=== PATIENT | male | born 1955 | race Caucasian/White ===

== ENCOUNTER 2020-05-09 20:21 | Inpatient (IN) | payer MEDICARE ==
[~2020-05-09] VITALS: Ht 182.9 cm; Wt 109.3 kg
--- NOTE | 2020-05-09 20:45 | NUR ---
ED Nurse Note: Recieved pt from home, here with c/o "my heart is beating really fast", pt is awake, alert and oriented x 4, states has been feeling palpitations since yesterday after diving, denies any chest pain, no sob or labored breathing, pt is slightly anxious due to unknown but denies any other s/s, pt immediately placed on cardiac mionitoring and noted in SVT at rate of 170's, MD immediately at bedside and attempted valsalvar maneuvers which were unsuccessful, IV line placed and labs drawn, will administer meds and continue to closely montior. pt other v/s wnl and stable.
[2020-05-09 21:00] VITALS: BP 117/74
[2020-05-09] MEDS ORDERED: Adenosine 6mg/2ml Inj IVP ONE (21:00)
[2020-05-09 21:01] LABS: BASOPHILS % (AUTO) 0.9 % (0.0-2.0); EOSINOPHILS % (AUTO) 0.9 % (0.0-3.0); HEMATOCRIT 45.9 % (42.0-52.0); HEMOGLOBIN 15.3 G/DL (14.2-18.0); LYMPHOCYTES % (AUTO) 35.1 % (20.0-45.0); MEAN CORPUSCULAR VOLUME 85 FL (80-99); MONOCYTES % (AUTO) 6.4 % (1.0-10.0); NEUTROPHILS % (AUTO) 56.8 % (45.0-75.0); PLATELET COUNT 255 K/UL (150-450); RED BLOOD COUNT 5.39 M/UL (4.70-6.10); WHITE BLOOD COUNT 12.1 K/UL (4.8-10.8)
[2020-05-09 21:10] VITALS: BP 109/75
[2020-05-09 21:21] LABS: ANION GAP 11 mmol/L (5-15); BLOOD UREA NITROGEN 23 mg/dL (7-18); CALCIUM 9.3 MG/DL (8.5-10.1); CARBON DIOXIDE 24 MMOL/L (21-32); CHLORIDE 106 MMOL/L (98-107); CREATININE 1.5 MG/DL (0.55-1.30); POTASSIUM 3.9 MMOL/L (3.5-5.1); SODIUM 141 MMOL/L (136-145)
--- NOTE | 2020-05-09 21:23 | Diagnostic Imaging Report ---
EXAM: XR Chest, 1 View CLINICAL HISTORY: SOB TECHNIQUE: Frontal views of the chest. COMPARISON: None available. FINDINGS: Lungs: Unremarkable. No consolidation. Pleural space: Unremarkable. No pneumothorax. Heart: Unremarkable. No cardiomegaly. Mediastinum: Unremarkable. Bones/joints: Unremarkable. Vasculature: Mildly tortuous aorta. IMPRESSION: No acute findings in the chest.
--- NOTE | 2020-05-09 21:30 | NUR ---
ED Nurse Note: Pt administered adenosine, med effective, heart rate decreased to 103, repeat ekg also NSR, pt continuues to deny chest pain, sob, or any other discomforts, will continue to closely monitor cardiac status on monitoring.
[2020-05-09 21:35] VITALS: BP 127/85
[2020-05-09 21:35] LABS: ALANINE AMINOTRANSFERASE 43 U/L (12-78); ALBUMIN/GLOBULIN RATIO 1.1 (1.0-2.7); ALKALINE PHOSPHATASE 158 U/L (46-116); ASPARTATE AMINO TRANSFERASE 28 U/L (15-37); BILIRUBIN,TOTAL 0.3 MG/DL (0.2-1.0)
--- NOTE | 2020-05-09 22:28 | Emergency Room Report ---
History of Present Illness General Chief Complaint: Palpitations Source: Patient Present Illness HPI 64-year-old male no reported past medical history presents for palpitations. He states he has had palpitations for the last 24 hours or so. He did eat a marijuana brownie last night. Today's had some chest tightness with generalized weakness and palpitations. No history of similar episodes in the past. Patient denies any medical history at this time. 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 Patient History Reviewed Nursing Documentation: PMH: Agreed; PSxH: Agreed Nursing Documentation-PMH Past Medical History: No Stated History Review of Systems All Other Systems: negative except mentioned in HPI Physical Exam Vital Signs Date Time Temp Pulse Resp B/P (MAP) Pulse Ox O2 Delivery O2 Flow Rate FiO2 05/09/20 20:25 98.4 161 18 109/75 (86) 97 Room Air Sp02 EP Interpretation: reviewed, normal General Appearance: no apparent distress, other - Patient mildly diaphoretic Head: normocephalic, atraumatic Eyes: bilateral eye PERRL, bilateral eye EOMI ENT: hearing grossly normal, moist mucus membranes Neck: full range of motion, supple Respiratory: lungs clear, normal breath sounds, no rhonchi, no respiratory distress, no retraction, no wheezing Cardiovascular #1: normal peripheral pulses, regular rate, rhythm, no murmur, tachycardia Gastrointestinal: non tender, soft, non-distended, no guarding Neurologic: alert, oriented x3, no focal defects Skin: normal color, warm/dry Medical Decision Making Diagnostic Impression: Primary Impression: SVT (supraventricular tachycardia) Additional Impression: Troponin level elevated ER Course MDM: Differential included but not limited to SVT, atrial fibrillation, ACS, adverse reaction to cannabis Clinical course-IV inserted patient placed on cardiac monitoring pulse oximetry. EKG demonstrated evidence of SVT. Laboratory studies were sent showed mild elevation in the troponin. Patient had mild chest tightness while having SVT. First I attempted vagal maneuvers which were unsuccessful. Patient then given 6 mg of adenosine IV with conversion to sinus rhythm. Repeat EKG demonstrated sinus rhythm with a rate of 99 at 2110. First-degree AV block noted. Secondary to patient's chest tightness mild elevation troponin was given aspirin was placed on telemetry for observation. Labs - Laboratory Tests Test 05/09/20 20:49 05/09/20 21:00 White Blood Count 12.1 K/UL (4.8-10.8) H Red Blood Count 5.39 M/UL (4.70-6.10) Hemoglobin 15.3 G/DL (14.2-18.0) Hematocrit 45.9 % (42.0-52.0) Mean Corpuscular Volume 85 FL (80-99) Mean Corpuscular Hemoglobin 28.3 PG (27.0-31.0) Mean Corpuscular Hemoglobin Concent 33.3 G/DL (32.0-36.0) Red Cell Distribution Width 13.0 % (11.6-14.8) Platelet Count 255 K/UL (150-450) Mean Platelet Volume 7.5 FL (6.5-10.1) Neutrophils (%) (Auto) 56.8 % (45.0-75.0) Lymphocytes (%) (Auto) 35.1 % (20.0-45.0) Monocytes (%) (Auto) 6.4 % (1.0-10.0) Eosinophils (%) (Auto) 0.9 % (0.0-3.0) Basophils (%) (Auto) 0.9 % (0.0-2.0) Prothrombin Time 10.7 SEC (9.30-11.50) Prothrombin Time INR 1.0 (0.9-1.1) Activated Partial Thromboplast Time 29 SEC (23-33) Sodium Level 141 MMOL/L (136-145) Potassium Level 3.9 MMOL/L (3.5-5.1) Chloride Level 106 MMOL/L (98-107) Carbon Dioxide Level 24 MMOL/L (21-32) Anion Gap 11 mmol/L (5-15) Blood Urea Nitrogen 23 mg/dL (7-18) H Creatinine 1.5 MG/DL (0.55-1.30) H Estimated Glomerular Filtration Rate 46.8 mL/min (>60) Glucose Level 115 MG/DL (74-106) H Calcium Level 9.3 MG/DL (8.5-10.1) Magnesium Level 2.3 MG/DL (1.8-2.4) Total Bilirubin 0.3 MG/DL (0.2-1.0) Aspartate Amino Transferase (AST) 28 U/L (15-37) Alanine Aminotransferase (ALT) 43 U/L (12-78) Alkaline Phosphatase 158 U/L (46-116) H Troponin I 0.085 ng/mL (0.000-0.056) Pro-B-Type Natriuretic Peptide 626 pg/mL (0-125) H Total Protein 7.7 G/DL (6.4-8.2) Albumin 4.0 G/DL (3.4-5.0) Globulin 3.7 g/dL Albumin/Globulin Ratio 1.1 (1.0-2.7) Urine Opiates Screen Negative (NEGATIVE) Urine Barbiturates Screen Negative (NEGATIVE) Phencyclidine (PCP) Screen Negative (NEGATIVE) Urine Amphetamines Screen Negative (NEGATIVE) Urine Benzodiazepines Screen Negative (NEGATIVE) Urine Cocaine Screen Negative (NEGATIVE) Urine Marijuana (THC) Screen Positive (NEGATIVE) H Plan- observation to telemetry floor EKG Diagnostic Results EKG Time: 20:43 EP Interpretation: Yes Rate: tachycardiac Rhythm: other - SVT Other Impression Rate 161 SVT Last Vital Signs Date Time Temp Pulse Resp B/P (MAP) Pulse Ox O2 Delivery O2 Flow Rate FiO2 05/09/20 21:35 98.4 96 15 127/85 100 Room Air Status: improved Disposition: ADMITTED INPATIENT Condition: Serious Referrals: NON PHYSICIAN (PCP) Ishmael Bustos M.D. May 09, 2020 22:28
[2020-05-09] MEDS ORDERED: Aspirin Baby 81mg ORAL ONE (22:45)
[2020-05-09 23:00] VITALS: BP 117/78
--- NOTE | 2020-05-09 23:00 | NUR ---
ED Nurse Note: Pt continues to rest in bed quietly and awake, remains on cardiac monitoring in NSR with rate of about 85, continues to deny chest pain, ASA given as ordered for elevated trop level, saline lock intact and patent, belongings list completed for pt admission, no sob or labored breathing noted, nad noted, will continue to closely monitor while waiting for pt room for hospital admission.
--- NOTE | 2020-05-09 23:45 | NUR ---
ED Nurse Note: Pt has room for admission, report called to floor nurse, pt belongings list completed and kept with him, pt remains awake and alert, saline lock intact and patent, denies cp or any pain, no sob or lbored breathing and heart rate wnl, pt taken to unit via gurney with acls protocols and monitoring, nad noted during pt transport to floor bed.
--- NOTE | 2020-05-09 23:50 | NUR ---
NURSE NOTES: Received report from FRIEDA Garcia RN. Pt admitted to Tele/OBS. Pt in stable condition, denies pain, A+Ox4, skin is intact. laboratory monitor placed. Pt given call light and instructed to call if assistance is needed, verbalized understanding. Bed in lowest position, side rails up x2. Pt has bathroom privileges. Will start plan of care and close monitoring.
--- NOTE | 2020-05-10 04:30 | NUR ---
NURSE NOTES: Pt had sudden onset of SVT with bpm reaching 170. 12-Lead EKG done and shows SVT. Pt states that he feel palpitations, making him anxious. Pt is currently in ST at 140 bpm. Ladonna notified of change in condition, awaiting new orders.
[2020-05-10 08:00] VITALS: BP 103/78
--- NOTE | 2020-05-10 08:06 | NUR ---
HAND-OFF: Report given to Tasneem Mendoza RN. Pt in stable condition, plan of care endorsed.
--- NOTE | 2020-05-10 08:09 | NUR ---
NURSES NOTES: Received report from YENI Reyes. Pt is A/O x4 and sitting in bed with no pain noted. analytical tech in place and showing ST. Pt is on NC running 2L. Pt has a LAC 20 gauge with saline lock. Bed in lowest position and locked and call light placed within reach.
--- NOTE | 2020-05-10 08:37 | NUR ---
NURSE NOTES: Made Dr Dougherty aware of the pt's HR, sustaining to 150s. made aware of troponin level (yesterday was 0.085 and 0.254 today). Awaiting for new orders. Addendum: 05/10/20 at 0852 by Tasneem Garland RN made aware that HR is on 160s now.
[2020-05-10] MEDS: Aspirin Baby 81mg ORAL SCH (09:01)
[2020-05-10] MEDS: Metoprolol Tartrate 12.5mg TAB ORAL SCH ×2 (09:01→20:27)
[2020-05-10] MEDS: Heparin 5000 units/ml inj SUBQ SCH ×2 (09:02→20:32)
--- NOTE | 2020-05-10 09:29 | History & Physical ---
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 He did eat a marijuana brownie previous evening. Had some chest tightness with generalized weakness and palpitations. No history of similar episodes in the past. Patient denies any medical history at this time. SVT resolved with Adenosine Allergies: No Known Allergies Past Medical History: Cataract Surgery, on HIV prophyllaxis Social History: Marijuana use FH: NC All Other Systems: negative except mentioned in HPI Physical Exam Vital Signs Noted Date Time Temp Pulse Resp B/P (MAP) Pulse Ox O2 Delivery O2 Flow Rate FiO2 05/09/20 20:25 98.4 161 18 109/75 (86) 97 Room Air General Appearance: no apparent distress Head: normocephalic, atraumatic Eyes: bilateral eye PERRL, bilateral eye EOMI ENT: hearing grossly normal, moist mucus membranes Neck: full range of motion, supple Respiratory: lungs clear, normal breath sounds, no rhonchi, no respiratory distress, no retraction, no wheezing Cardiovascular: HS1, HS2 normal, normal peripheral pulses, regular rate, rhythm , no murmur, tachycardia Gastrointestinal: non tender, soft, non-distended, no guarding Neurologic: alert, oriented x3, no focal defects Skin: normal color, warm/dry, no edema Impression: Supraventricular tachycardia Troponin level elevated, possible NSTEMI HIV prophyllaxis on Truvada Previous cataract surgery Plan ASA Metoprolol Echocardiogram Cardiology Consultation SQ Heparin Monitor labs TSH Laboratory Tests noted Test 05/09/20 20:49 05/09/20 21:00 White Blood Count 12.1 K/UL (4.8-10.8) H Red Blood Count 5.39 M/UL (4.70-6.10) Hemoglobin 15.3 G/DL (14.2-18.0) Hematocrit 45.9 % (42.0-52.0) Mean Corpuscular Volume 85 FL (80-99) Mean Corpuscular Hemoglobin 28.3 PG (27.0-31.0) Mean Corpuscular Hemoglobin Concent 33.3 G/DL (32.0-36.0) Red Cell Distribution Width 13.0 % (11.6-14.8) Platelet Count 255 K/UL (150-450) Mean Platelet Volume 7.5 FL (6.5-10.1) Neutrophils (%) (Auto) 56.8 % (45.0-75.0) Lymphocytes (%) (Auto) 35.1 % (20.0-45.0) Monocytes (%) (Auto) 6.4 % (1.0-10.0) Eosinophils (%) (Auto) 0.9 % (0.0-3.0) Basophils (%) (Auto) 0.9 % (0.0-2.0) Prothrombin Time 10.7 SEC (9.30-11.50) Prothrombin Time INR 1.0 (0.9-1.1) Activated Partial Thromboplast Time 29 SEC (23-33) Sodium Level 141 MMOL/L (136-145) Potassium Level 3.9 MMOL/L (3.5-5.1) Chloride Level 106 MMOL/L (98-107) Carbon Dioxide Level 24 MMOL/L (21-32) Anion Gap 11 mmol/L (5-15) Blood Urea Nitrogen 23 mg/dL (7-18) H Creatinine 1.5 MG/DL (0.55-1.30) H Estimated Glomerular Filtration Rate 46.8 mL/min (>60) Glucose Level 115 MG/DL (74-106) H Calcium Level 9.3 MG/DL (8.5-10.1) Magnesium Level 2.3 MG/DL (1.8-2.4) Total Bilirubin 0.3 MG/DL (0.2-1.0) Aspartate Amino Transferase (AST) 28 U/L (15-37) Alanine Aminotransferase (ALT) 43 U/L (12-78) Alkaline Phosphatase 158 U/L (46-116) H Troponin I 0.085 ng/mL (0.000-0.056) Pro-B-Type Natriuretic Peptide 626 pg/mL (0-125) H Total Protein 7.7 G/DL (6.4-8.2) Albumin 4.0 G/DL (3.4-5.0) Globulin 3.7 g/dL Albumin/Globulin Ratio 1.1 (1.0-2.7) Urine Opiates Screen Negative (NEGATIVE) Urine Barbiturates Screen Negative (NEGATIVE) Phencyclidine (PCP) Screen Negative (NEGATIVE) Urine Amphetamines Screen Negative (NEGATIVE) Urine Benzodiazepines Screen Negative (NEGATIVE) Urine Cocaine Screen Negative (NEGATIVE) Urine Marijuana (THC) Screen Positive (NEGATIVE) H EKG: Rate: tachycardiac Rhythm: other - SVT Other Impression Rate 161 SVT CXR: No acute abnormality Gabriel Del Valle MD May 10, 2020 09:29
[2020-05-10] MEDS ORDERED: LOTEMAX SM5 GM OP (10:15)
[2020-05-10] MEDS ORDERED: REFRESH OPTIVE15 ML OP (10:15)
[2020-05-10] MEDS ORDERED: ATORVASTATIN CA10 MG ORAL (10:15)
[2020-05-10] MEDS ORDERED: PROLENSA1.6 ML OP (10:15)
[2020-05-10] MEDS ORDERED: dilTIAZem HCl 25mg/5ml Inj IVP SCH (10:15)
[2020-05-10 12:00] VITALS: BP 106/75
[2020-05-10] MEDS: dilTIAZem HCl 60mg tab ORAL SCH ×3 (12:00→23:40)
[2020-05-10] MEDS: NS w/KCl 20mEq 1000ml 1,000 ML IV SCH ×2 (12:59→18:00)
--- NOTE | 2020-05-10 13:09 | NUR ---
NURSE NOTES: Held cardizem that is scheduled at 1200. One time dose was just given at 1021.
[2020-05-10 14:05] LABS: APPEARANCE,URINE CLEAR; BILIRUBIN, URINE NEGATIVE (NEGATIVE); COLOR,URINE PALE YELLOW; GLUCOSE, URINE (UA) NEGATIVE (NEGATIVE); KETONES,URINE NEGATIVE (NEGATIVE); LEUKOCYTE ESTERASE ,URINE NEGATIVE (NEGATIVE); NITRITE,URINE NEGATIVE (NEGATIVE); PH,URINE 5 (4.5-8.0); PROTEIN,URINE NEGATIVE (NEGATIVE); UROBILINOGEN,URINE NORMAL MG/DL (0.0-1.0)
[2020-05-10] MEDS: [UNRECOGNIZED DRUG - OTHER] BOTH EYES PRN ×2 (15:09→20:27)
[2020-05-10 16:00] VITALS: BP 110/74
[2020-05-10] MEDS: LOTEMAX SM 0.38% BOTH EYES SCH (17:59)
--- NOTE | 2020-05-10 18:00 | NUR ---
NURSES NOTES: Cardizem held at 1800. BP and Pulse within normal range.
--- NOTE | 2020-05-10 19:14 | Consultation ---
DATE OF CONSULTATION: 05/10/2020 CARDIOLOGY CONSULTATION CONSULTING PHYSICIAN: Gabriel Dougherty MD. REFERRING PHYSICIAN: Tim Foley MD. REASON FOR CONSULTATION: Supraventricular tachycardia. HISTORY OF PRESENT ILLNESS: This 64-year-old white gentleman with no prior history of cardiovascular disease other than hypertension, developed palpitations and some shortness of breath last night. He is an avid swimmer and resuming swimming this weekend had a few short spurts of tachycardia noted, but not of significance. He did not have any other changes in his condition other than eating a marijuana brownie the night before of admission. He came to the emergency room with some shortness of breath, palpitations, chest tightness and weakness, and was noted to have supraventricular tachycardia which was terminated with adenosine. Upon admission to the hospital a recurring episode was noted and Cardizem was given with resolution as well. The patient also had an elevated troponin level prompting this consultation. PAST MEDICAL HISTORY: Notable for hypertension and hyperlipidemia. MEDICATIONS: Include atorvastatin. ALLERGIES: None. SOCIAL HISTORY: Occasional marijuana. No smoking, alcohol, or other substance abuse. FAMILY HISTORY: Both parents had coronary artery disease. REVIEW OF SYSTEMS: No fevers or chills. No cough or sputum production. No history of COVID-19 exposure. No seizure or stroke. No known thyroid disorder or diabetes. He is on anti-lipid therapy. No change in bowel habits. No history of prostate cancer or difficulty voiding. He had a stress test several years ago that was negative. PHYSICAL EXAMINATION: VITAL SIGNS: Blood pressure 109/75, pulse 160, respirations 18, afebrile. Presently 105/65, pulse 78, respirations 18. HEENT: Conjunctivae are pink. Oropharynx is clear. NECK: Supple. LUNGS: Clear. CARDIAC: Regular. Normal S1, S2 with no murmur. ABDOMEN: Soft, nontender. EXTREMITIES: Good pulses. No edema. NEUROLOGIC: Nonfocal. LABORATORY AND DIAGNOSTIC DATA: EKG - sinus rhythm, nonspecific ST change. Repeat EKG with SVT noted, possibly AV jackelyn reentry. Troponin up to 0.243. IMPRESSION: 1. Paroxysmal supraventricular tachycardia. 2. History of hyperlipidemia. 3. Elevated troponin level, likely precipitated by rapid heart rate and decreased oxygen carrying capacity. PLAN: 1. Anti-platelet therapy, low-dose beta-keya, add Cardizem. 2. Review echocardiogram. 3. Consider myocardial perfusion scan. 4. DVT prophylaxis, no plan for full anticoagulation at this time. Gabriel Dougherty M.D. DR: DAYNE JOB#: [id number] CC:
--- NOTE | 2020-05-10 19:33 | NUR ---
NURSE HAND-OFF REPORT: Important Events on Shift: Was SVT and converted to SR with Cardizem IVP. Urine Sample pending and receiving 1/2 NS with 20 meq @ 150cc/hr x 2L. Patient Status: Good Diet: Cardiac Pending Orders: None Pending Results/Labs: Urine Pending notification: None Latest Vital Signs: Temperature 98.8 , Pulse 63 , B/P 106 /75 , Respiratory Rate 18 , O2 SAT 97 , Nasal Cannula, O2 Flow Rate 3.0 . Vital Sign Comment: EKG Rhythm: SR w/ 1st deg HB Rhythm change?: N Notified?: Flor Gregory MD Response: Message left await call Latest Olson Fall Score: 20 Fall Risk: Low Risk Safety Measures: Call light Within Reach, Bed Alarm , Side Rails Side Rails x2, Bed position Low and Locked. Fall Precautions: Yellow Socks Yellow Gown Door Sign Patient Fall Education Report given to Rosalva.
--- NOTE | 2020-05-10 19:53 | NUR ---
NURSE NOTES: Report received from YENI Muñoz. Patient is in bed awake alert and oriented x4. No SOB or distress. athletic monitor is intact, Sinus rhythm with 68 heart rate. Call light and bedside table within reach. Denies pain at this time. Bed at lowest position locked with siderails up for support. Will continue with plan of care.
[2020-05-10 20:00] VITALS: BP 111/68
[2020-05-10] MEDS: TRUVADA ORAL SCH (20:28)
--- NOTE | 2020-05-10 23:24 | NUR ---
NURSE NOTES: Spoke with Dr. Del Valle regarding patient stating that he can not sleep and he feels restless. Orders noted and carried out to start Ambien 5 mg one tablet orally QHS PRN for inability to sleep.
[2020-05-11] VITALS: BP 109/70
[2020-05-11] MEDS: Zolpidem 5mg tab ORAL PRN ×2 (00:52→23:31)
[2020-05-11 04:00] VITALS: BP 108/71
[2020-05-11] MEDS: dilTIAZem HCl 60mg tab ORAL SCH ×3 (06:00→21:43)
--- NOTE | 2020-05-11 06:37 | NUR ---
NURSE NOTES: Called and left message with Dr. Dougherty. Made him aware that patient has heart rate of 51, BP 108/71, EKG tracing shows Sinus Julian with 1st degree AV block. Asked him if Diltiazem 60mg should be administered or held due to vital signs. Awaiting call back.
--- NOTE | 2020-05-11 07:19 | NUR ---
HAND-OFF: Report given to YENI Galindo. Patient is stable at this time. Made him aware of call made to Dr. Morley.
--- NOTE | 2020-05-11 07:20 | NUR ---
NURSE NOTES: Received patient awake, ambulating in room. On room air, respirations unlabored. Denies pain at this time. IV in the Left AC, site intact. Side rails up x2, bed low and locked.
[2020-05-11 07:38] LABS: ALANINE AMINOTRANSFERASE 46 U/L (12-78); ALBUMIN/GLOBULIN RATIO 1.1 (1.0-2.7); ALKALINE PHOSPHATASE 130 U/L (46-116); ANION GAP 5 mmol/L (5-15); ASPARTATE AMINO TRANSFERASE 27 U/L (15-37); BILIRUBIN,TOTAL 0.8 MG/DL (0.2-1.0); BLOOD UREA NITROGEN 15 mg/dL (7-18); CALCIUM 8.9 MG/DL (8.5-10.1); CARBON DIOXIDE 29 MMOL/L (21-32); CHLORIDE 108 MMOL/L (98-107); CHOLESTEROL 125 MG/DL (< 200); CREATININE 1.2 MG/DL (0.55-1.30); HDL CHOLESTEROL 30 MG/DL (40-60); POTASSIUM 3.8 MMOL/L (3.5-5.1); SODIUM 142 MMOL/L (136-145); TRIGLYCERIDES 80 MG/DL (30-150)
[2020-05-11 08:00] VITALS: BP 133/64
[2020-05-11] MEDS: LOTEMAX SM 0.38% BOTH EYES SCH ×3 (08:44→17:45)
[2020-05-11] MEDS: PROLENSA 0.07% BOTH EYES SCH (08:44)
[2020-05-11] MEDS: Aspirin Baby 81mg ORAL SCH (08:45)
--- NOTE | 2020-05-11 08:46 | General Progress Note ---
Assessment/Plan Assessment/Plan: Impression: Supraventricular tachycardia Troponin level elevated, possible NSTEMI HIV prophyllaxis on Truvada Previous cataract surgery Plan ASA Metoprolol Echocardiogram Cardiology follow up SQ Heparin Monitor labs TSH minimally elevated check t3 and t4 impression, plan, and exam edited and reviewed in detail care discussed with RN Subjective Allergies: Coded Allergies: No Known Allergies (Unverified , 05/09/20) Subjective comfortable NAD Objective Last 24 Hour Vital Signs Date Time Temp Pulse Resp B/P (MAP) Pulse Ox O2 Delivery O2 Flow Rate FiO2 05/11/20 08:11 Nasal Cannula 2.0 05/11/20 06:00 51 108/55 05/11/20 04:00 98.4 66 18 108/71 (83) 94 05/11/20 04:00 56 05/11/20 00:00 98.5 63 18 109/70 (83) 98 05/11/20 00:00 55 05/10/20 23:40 60 111/68 05/10/20 21:00 Nasal Cannula 3.0 05/10/20 20:27 63 148/73 05/10/20 20:00 68 05/10/20 20:00 98.1 60 18 111/68 (82) 98 05/10/20 17:21 63 106/75 05/10/20 16:00 98.8 64 18 110/74 (86) 97 05/10/20 15:26 63 05/10/20 12:00 99.0 65 20 106/75 (85) 97 05/10/20 11:54 64 05/10/20 10:21 142 103/78 05/10/20 09:01 142 103/78 05/10/20 09:00 Nasal Cannula 3.0 Intake and Output 05/10/20 05/11/20 18:59 06:59 Intake Total 360 ml Output Total 700 ml 300 ml Balance -340 ml -300 ml Intake Oral 360 ml Output Urine Total 700 ml 300 ml # Voids 1 Laboratory Tests 05/10/20 11:02: Urine Color Pale yellow, Urine Appearance Clear, Urine pH 5, Urine Specific [place] 1.015, Urine Protein Negative, Urine Glucose (UA) Negative, Urine Ketones Negative, Urine Blood Negative, Urine Nitrite Negative, Urine Bilirubin Negative, Urine Urobilinogen Normal, Urine Leukocyte Esterase Negative 05/10/20 17:20: Troponin I 0.209H 05/11/20 06:01: Sodium Level 142, Potassium Level 3.8, Chloride Level 108H, Carbon Dioxide Level 29, Anion Gap 5, Blood Urea Nitrogen 15, Creatinine 1.2, Estimat Glomerular Filtration Rate > 60, Glucose Level 91, Calcium Level 8.9, Magnesium Level 2.1, Total Bilirubin 0.8, Aspartate Amino Transf (AST/SGOT) 27, Alanine Aminotransferase (ALT/SGPT) 46, Alkaline Phosphatase 130H, Total Protein 7.7, Albumin 4.0, Globulin 3.7, Albumin/Globulin Ratio 1.1, Triglycerides Level 80, Cholesterol Level 125, LDL Cholesterol 84, HDL Cholesterol 30L, Cholesterol/HDL Ratio 4.2 Height (Feet): 6 Height (Inches): 10.00 Weight (Pounds): 240 Objective WDWN NAD clear breath sounds bilaterally without rhonchi or wheeze [id number] without MRG NABS nontender no HSM no CCE nonfocal Tim Foley MD May 11, 2020 08:46
[2020-05-11] MEDS: Heparin 5000 units/ml inj SUBQ SCH ×2 (08:56→21:42)
[2020-05-11] MEDS: Metoprolol Tartrate 12.5mg TAB ORAL SCH ×2 (08:57→21:00)
[2020-05-11] MEDS: [UNRECOGNIZED DRUG - OTHER] BOTH EYES PRN ×2 (09:30→17:43)
[2020-05-11 11:59] VITALS: BP 117/77
--- NOTE | 2020-05-11 15:13 | NUR ---
CASE MANAGEMENT: REVIEW 64 YEAR OLD MALE PRESENTED TO ED FROM HOME CC: CHEST PAIN . PALPITATIONS SI: SUPRAVENTRICULAR TACHYCARDIA T 98.4 HR 167 RR 18 BP 109/75 SAT 97% ROOM AIR WBC 12.1 BUN 23 CR 1.5 TROP I 0.254 EKG -- SINUS RHYTHM, NONSPECIFIC ST CHANGE, DEMONSTRATED EVIDENCE OF SVT STRESS TEST PENDING DOWNTREND OF TROPONIN I IS: NS IVF BOLUS X1 ADENOSINE IV X1 CARDIZEM IV X1 ASA 162MG PO X1 K-DUR 20MEQ PO X1 PATIENT ADMITTED TO TELEMETRY UNIT 05/09/2020 DCP: PATIENT IS FROM HOME
[2020-05-11 16:00] VITALS: BP 120/73
--- NOTE | 2020-05-11 19:15 | NUR ---
NURSE HAND-OFF REPORT: Important Events on Shift:[troponin blood draw] Patient Status: [] Diet: [cardiac] Pending Orders: [] Pending Results/Labs:[] Pending MD notification:[] Latest Vital Signs: Temperature 97.9 , Pulse 85 , B/P 120 /73 , Respiratory Rate 20 , O2 SAT 98 , Nasal Cannula, O2 Flow Rate 2.0 . Vital Sign Comment: [] EKG Rhythm: SR w/ 1st degree AVB Rhythm change?: N MD Notified?: MD Response: Latest Olson Fall Score: 20 Fall Risk: Low Risk Safety Measures: Call light Within Reach, Bed Alarm , Side Rails Side Rails x2, Bed position Low and Locked. Fall Precautions: Patient Fall Education Report given to [Shelli JAIME].
--- NOTE | 2020-05-11 19:50 | NUR ---
NURSE NOTES: Received pt from YENI Galindo. Pt awake, alert, and talkative. Bed in lowest position. Call light within reach. Will continue to monitor.
[2020-05-11 20:00] VITALS: BP 130/80
[2020-05-11] MEDS: TRUVADA ORAL SCH (21:35)
[2020-05-12] VITALS: BP 128/74
--- NOTE | 2020-05-12 00:33 | Cardiology Progress Note ---
Subjective DATE OF SERVICE: May 11, 2020 No recurring SVT on diltiazem No CP or SOB. Troponin trending down Objective Last 24 Hour Vital Signs Date Time Temp Pulse Resp B/P (MAP) Pulse Ox O2 Delivery O2 Flow Rate FiO2 05/11/20 20:00 97.9 60 20 130/80 (97) 98 05/11/20 16:00 85 05/11/20 16:00 97.9 61 20 120/73 (89) 98 05/11/20 14:07 66 112/76 05/11/20 12:00 64 05/11/20 11:59 98.1 58 20 117/77 (90) 95 05/11/20 08:57 59 133/64 05/11/20 08:11 Nasal Cannula 2.0 05/11/20 08:00 58 05/11/20 08:00 97.5 59 20 133/64 (87) 93 05/11/20 06:00 51 108/55 05/11/20 04:00 98.4 66 18 108/71 (83) 94 05/11/20 04:00 56 HEENT: normal ENT inspection RHYTHM: NSR LUNGS: lungs clear bilaterally CARDIAC: normal rate, regular rhythm, normal S1 and S2 ABDOMEN: normal bowel sounds, non tender, soft, no organomegaly EXTREMITIES: no calf tenderness, No edema Laboratory Tests Test 05/11/20 06:01 Sodium Level 142 MMOL/L (136-145) Potassium Level 3.8 MMOL/L (3.5-5.1) Chloride Level 108 MMOL/L (98-107) H Carbon Dioxide Level 29 MMOL/L (21-32) Anion Gap 5 mmol/L (5-15) Blood Urea Nitrogen 15 mg/dL (7-18) Creatinine 1.2 MG/DL (0.55-1.30) Estimat Glomerular Filtration Rate > 60 mL/min (>60) Glucose Level 91 MG/DL (74-106) Calcium Level 8.9 MG/DL (8.5-10.1) Magnesium Level 2.1 MG/DL (1.8-2.4) Total Bilirubin 0.8 MG/DL (0.2-1.0) Aspartate Amino Transf (AST/SGOT) 27 U/L (15-37) Alanine Aminotransferase (ALT/SGPT) 46 U/L (12-78) Alkaline Phosphatase 130 U/L (46-116) H Troponin I 0.120 ng/mL (0.000-0.056) Total Protein 7.7 G/DL (6.4-8.2) Albumin 4.0 G/DL (3.4-5.0) Globulin 3.7 g/dL Albumin/Globulin Ratio 1.1 (1.0-2.7) Triglycerides Level 80 MG/DL (30-150) Cholesterol Level 125 MG/DL (< 200) LDL Cholesterol 84 mg/dL (<100) HDL Cholesterol 30 MG/DL (40-60) L Cholesterol/HDL Ratio 4.2 (3.3-4.4) Free Thyroxine 1.02 NG/DL (0.76-1.46) Free Triiodothyronine 2.4 pg/mL (2.3-4.2) EKG INTERPRETATION: 2D Echo - normal LVEF and valves Assessment/Plan Assessment/Plan Paroxysmal SVT Acute myocardial ischemia and possible NSTEMI Hyperlipidemia Serial troponin titrate anti-arrhythmics No anti-coagulation presently indicated Outpatient ischemia work-up Possible DC next 24hrs if cont'd stable cardiac rhythm. Gabriel Dougherty MD May 12, 2020 00:33
[2020-05-12 04:00] VITALS: BP 127/78
[2020-05-12] MEDS: dilTIAZem HCl 60mg tab ORAL SCH (05:43)
[2020-05-12 06:28] LABS: BASOPHILS % (AUTO) 0.9 % (0.0-2.0); EOSINOPHILS % (AUTO) 1.9 % (0.0-3.0); HEMATOCRIT 44.8 % (42.0-52.0); HEMOGLOBIN 14.7 G/DL (14.2-18.0); LYMPHOCYTES % (AUTO) 40.7 % (20.0-45.0); MEAN CORPUSCULAR VOLUME 85 FL (80-99); NEUTROPHILS % (AUTO) 49.4 % (45.0-75.0); PLATELET COUNT 204 K/UL (150-450); RED BLOOD COUNT 5.26 M/UL (4.70-6.10); WHITE BLOOD COUNT 6.9 K/UL (4.8-10.8)
[2020-05-12 06:53] LABS: ANION GAP 8 mmol/L (5-15); BLOOD UREA NITROGEN 16 mg/dL (7-18); CALCIUM 8.8 MG/DL (8.5-10.1); CARBON DIOXIDE 28 MMOL/L (21-32); CHLORIDE 104 MMOL/L (98-107); CREATININE 1.3 MG/DL (0.55-1.30); POTASSIUM 3.8 MMOL/L (3.5-5.1); SODIUM 140 MMOL/L (136-145)
--- NOTE | 2020-05-12 07:04 | NUR ---
NURSE HAND-OFF REPORT: Important Events on Shift: Ladonna spoke with pt and stated that he will be D/Cd if rhythm remains the same. Patient Status: stable Diet: cardiac Pending Orders: flonase added to med list Pending Results/Labs: cbc/bmp Pending notification: n/a Latest Vital Signs: Temperature 97.6 , Pulse 57 , B/P 127 /78 , Respiratory Rate 20 , O2 SAT 100 , Nasal Cannula, O2 Flow Rate 2.0 . Vital Sign Comment: stable EKG Rhythm: SB w/ 1st degree AVB Rhythm change?: N Notified?: Flor Gregory MD Response: Latest Olson Fall Score: 20 Fall Risk: Low Risk Safety Measures: Call light Within Reach, Bed Alarm , Side Rails Side Rails x2, Bed position Low and Locked. Fall Precautions: Education only. Pt stable on feet Patient Fall Education: Y Report given to YENI Galindo.
--- NOTE | 2020-05-12 07:10 | NUR ---
NURSE NOTES: Received patient in bed. Awake, A/O x4. On 2 L via NC. Patient denies pain. IV in the Left AC, site intact. Heart monitor on. Bed low and locked, side rails up x2.
--- NOTE | 2020-05-12 07:26 | General Progress Note ---
Assessment/Plan Assessment/Plan: Impression: Supraventricular tachycardia Troponin level elevated, possible NSTEMI HIV prophyllaxis on Truvada Previous cataract surgery Plan ASA Metoprolol Cardiology follow up SQ Heparin Monitor labs TSH minimally elevated normal t3 and t4 dc planning impression, plan, and exam edited and reviewed in detail care discussed with RN Subjective Allergies: Coded Allergies: No Known Allergies (Unverified , 05/09/20) Subjective comfortable NAD cardiology noted Objective Last 24 Hour Vital Signs Date Time Temp Pulse Resp B/P (MAP) Pulse Ox O2 Delivery O2 Flow Rate FiO2 05/12/20 04:00 57 05/12/20 04:00 97.6 60 20 127/78 (94) 100 05/12/20 00:00 97.7 74 20 128/74 (92) 98 05/12/20 00:00 69 05/11/20 21:00 Nasal Cannula 2.0 05/11/20 20:00 97.9 60 20 130/80 (97) 98 05/11/20 20:00 67 05/11/20 16:00 85 05/11/20 16:00 97.9 61 20 120/73 (89) 98 05/11/20 14:07 66 112/76 05/11/20 12:00 64 05/11/20 11:59 98.1 58 20 117/77 (90) 95 05/11/20 08:57 59 133/64 05/11/20 08:11 Nasal Cannula 2.0 05/11/20 08:00 58 05/11/20 08:00 97.5 59 20 133/64 (87) 93 Intake and Output 05/11/20 05/12/20 19:00 07:00 Intake Total 600 ml Balance 600 ml Intake Oral 600 ml # Voids 4 2 Laboratory Tests 05/12/20 05:42: White Blood Count 6.9, Red Blood Count 5.26, Hemoglobin 14.7, Hematocrit 44.8, Mean Corpuscular Volume 85, Mean Corpuscular Hemoglobin 27.9, Mean Corpuscular Hemoglobin Concent 32.8, Red Cell Distribution Width 12.0, Platelet Count 204, Mean Platelet Volume 6.6, Neutrophils (%) (Auto) 49.4, Lymphocytes (%) (Auto) 40.7, Monocytes (%) (Auto) 7.0, Eosinophils (%) (Auto) 1.9, Basophils (%) (Auto ) 0.9, Sodium Level 140, Potassium Level 3.8, Chloride Level 104, Carbon Dioxide Level 28, Anion Gap 8, Blood Urea Nitrogen 16, Creatinine 1.3, Estimat Glomerular Filtration Rate 55.2, Glucose Level 97, Calcium Level 8.8, Magnesium Level 2.0, Troponin I [Pending] Height (Feet): 6 Height (Inches): 10.00 Weight (Pounds): 241 Objective WDWN NAD clear breath sounds bilaterally without rhonchi or wheeze [id number] without MRG NABS nontender no HSM no CCE nonfocal Tim Foley MD May 12, 2020 07:26
[2020-05-12 08:00] VITALS: BP 120/73
[2020-05-12] MEDS: LOTEMAX SM 0.38% BOTH EYES SCH ×2 (08:53→13:07)
[2020-05-12] MEDS: [UNRECOGNIZED DRUG - OTHER] BOTH EYES PRN (08:53)
[2020-05-12] MEDS: Aspirin Baby 81mg ORAL SCH (08:53)
[2020-05-12] MEDS: PROLENSA 0.07% BOTH EYES SCH (08:53)
[2020-05-12] MEDS: Metoprolol Tartrate 12.5mg TAB ORAL SCH (08:53)
[2020-05-12] MEDS: Heparin 5000 units/ml inj SUBQ SCH (08:58)
[2020-05-12] MEDS ORDERED: Flonase Nasal Inhaler 16gm NASAL SCH (09:00)
[2020-05-12 12:00] VITALS: BP 118/79
[2020-05-12] MEDS ORDERED: ASPIRIN81 MG ORAL (12:55)
[2020-05-12] MEDS ORDERED: CARDIZEM CD180 MG ORAL (12:55)
[2020-05-12] MEDS ORDERED: dilTIAZem HCl CD 180mg cap ORAL SCH (13:00)
[2020-05-12 13:07] VITALS: BP 118/79
--- NOTE | 2020-05-12 14:15 | NUR ---
NURSE NOTES: Patient dc to home with (Farzad). IV site removed, ID band removed, Heart monitor removed. Belongings list verified.
[2020-05-12] MEDS ORDERED: TRUVADA ORAL SCH (21:00)
--- NOTE | 2020-05-12 23:07 | Cardiology Progress Note ---
Subjective DATE OF SERVICE: May 12, 2020 No recurring SVT on diltiazem No CP or SOB. Troponin trending to normal Objective Last 24 Hour Vital Signs Date Time Temp Pulse Resp B/P (MAP) Pulse Ox O2 Delivery O2 Flow Rate FiO2 05/12/20 13:07 60 118/79 05/12/20 12:00 71 05/12/20 12:00 97.5 60 17 118/79 (92) 99 05/12/20 08:53 104 120/73 05/12/20 08:07 Nasal Cannula 2.0 05/12/20 08:00 104 05/12/20 08:00 97.9 60 18 120/73 (89) 98 05/12/20 04:00 57 05/12/20 04:00 97.6 60 20 127/78 (94) 100 05/12/20 00:00 97.7 74 20 128/74 (92) 98 05/12/20 00:00 69 HEENT: normal ENT inspection RHYTHM: NSR LUNGS: lungs clear bilaterally CARDIAC: normal rate, regular rhythm, normal S1 and S2 ABDOMEN: normal bowel sounds, non tender, soft, no organomegaly EXTREMITIES: no calf tenderness, No edema Laboratory Tests Test 05/12/20 05:42 White Blood Count 6.9 K/UL (4.8-10.8) Red Blood Count 5.26 M/UL (4.70-6.10) Hemoglobin 14.7 G/DL (14.2-18.0) Hematocrit 44.8 % (42.0-52.0) Mean Corpuscular Volume 85 FL (80-99) Mean Corpuscular Hemoglobin 27.9 PG (27.0-31.0) Mean Corpuscular Hemoglobin Concent 32.8 G/DL (32.0-36.0) Red Cell Distribution Width 12.0 % (11.6-14.8) Platelet Count 204 K/UL (150-450) Mean Platelet Volume 6.6 FL (6.5-10.1) Neutrophils (%) (Auto) 49.4 % (45.0-75.0) Lymphocytes (%) (Auto) 40.7 % (20.0-45.0) Monocytes (%) (Auto) 7.0 % (1.0-10.0) Eosinophils (%) (Auto) 1.9 % (0.0-3.0) Basophils (%) (Auto) 0.9 % (0.0-2.0) Sodium Level 140 MMOL/L (136-145) Potassium Level 3.8 MMOL/L (3.5-5.1) Chloride Level 104 MMOL/L (98-107) Carbon Dioxide Level 28 MMOL/L (21-32) Anion Gap 8 mmol/L (5-15) Blood Urea Nitrogen 16 mg/dL (7-18) Creatinine 1.3 MG/DL (0.55-1.30) Estimat Glomerular Filtration Rate 55.2 mL/min (>60) Glucose Level 97 MG/DL (74-106) Calcium Level 8.8 MG/DL (8.5-10.1) Magnesium Level 2.0 MG/DL (1.8-2.4) Troponin I 0.033 ng/mL (0.000-0.056) Assessment/Plan Assessment/Plan Paroxysmal SVT Acute myocardial ischemia and possible NSTEMI Hyperlipidemia Outpatient stress test No anti-coagulation presently indicated; continue aspirin. Continue diltiazem Gabriel Dougherty MD May 12, 2020 23:07
--- NOTE | 2020-05-14 18:19 | Discharge Summary ---
Discharge Summary Discharge Summary _ DATE OF ADMISSION: 05/09/2020 DATE OF DISCHARGE: 05/12/2020 DISCHARGED BY: Dr. Foley REASON FOR ADMISSION: 64 years old male with no reported past medical history, presented to emergency department for palpitations for the last 24 hours. Patient apparently consumed a marijuana brownie the night prior to presentation to ED. The next day he had chest tightness with generalized weakness and palpitations. No history of similar episodes in the past. Upon evaluation patient was tachycardic with heart rate 161. Blood pressure was stable. Pulse oximetry was stable on room air. Laboratory work-up revealed mild leukocytosis WBC 12.1, hemoglobin 15.3, hematocrit 45.9, platelet count 255. Stable electrolytes. BUN 23, creatinine 1.5. Glucose 115. Magnesium 2.3. Troponin 0.085 , pro BNP 626 . EKG revealed supraventricular tachycardia AST 28,ALT 43, alkaline phosphatase 158 Urine toxicology screen was positive for marijuana. Chest x-ray demonstrated no acute cardiopulmonary pathology. In emergency department patient was placed on monitoring coordinator . Initially attempted vagal maneuver, which were unsuccessful. Patient subsequently received 6 mg of IV adenosine with conversion to sinus rhythm. Repeated EKG demonstrated sinus rhythm with rate of 99 and first-degree AV block. Patient received aspirin and admitted to telemetry floor for further management. CONSULTANTS: research agricultural engineer Dr. Dougherty [facility] COURSE: Patient admitted to telemetry floor. Patient started on aspirin and beta-blockade. Chief Scientist consulted. Patient also started on Cardizem. Heart rate was controlled with Cardizem and beta-keya. No further evidence of SVT. DVT prophylaxis provided. TSH slightly elevated 4.453 with stable free T4 and T3. Serial troponin revealed minimal elevation with peak of 0.254, then started to trend down; last troponin negative. Echocardiogram demonstrated preserved ejection fraction of 65% with borderline left ventricular hypertrophy. No evidence of pericardial effusion. No evidence of wall motion abnormality. Right ventricular systolic pressure of 23. According to research agricultural engineer patient had acute myocardial ischemia and possibly NSTEMI. He did not recommended any anticoagulation at this time, but continue with aspirin, beta-keya and diltiazem. Lipid panel remains stable stable. Statin continued. Patient was recommended outpatient stress test . Patient clinically stabilized and was ready for discharge home. FINAL DIAGNOSES: Paroxysmal supraventricular tachycardia Elevated troponin Acute myocardial ischemia Possible NSTEMI Hyperlipidemia HIV prophylaxis, on Truvada History of cataract surgery DISCHARGE MEDICATIONS: See Medication Reconciliation list. DISCHARGE INSTRUCTIONS: Patient was discharged home. Follow-up with a primary care provider in 1 week. I have been assigned to dictate discharge summary for this account. I was not involved in the patient's management. Trista Fam NP May 14, 2020 18:19
== END 2020-05-12 14:15 | disposition home or self-care (01) | DRG 281 ==
LOC: EMR 21:26 → 2E 22:29 → OBSVTOIN 22:29 → INTOOBSV 22:29 → EDBEDREQ 23:07
DX: I21.4 Non-ST elevation (NSTEMI) myocardial infarction (principal); I47.1 Supraventricular tachycardia; I10 Essential (primary) hypertension; E78.5 Hyperlipidemia, unspecified
CPT/HCPCS: 36415; 71045; 80048; 80053; 80061; 80307; 81003; 83735; 83880; 84439; 84443; 84481; 84484; 85025; 85610; 85730; 93005; 93306; 96360; 96361; 96372; 96374; 99285; J7030; J8499

== ENCOUNTER 2020-06-13 18:19 | Emergency (ER) | payer MEDICARE, BC ==
[~2020-06-13] VITALS: Ht 177.8 cm; Wt 106.6 kg
[~2020-06-13 18:19] MED LIST: ASPIRIN81 MG ORAL; ATORVASTATIN CA10 MG ORAL; CARDIZEM CD180 MG ORAL; LOTEMAX SM5 GM OP; PROLENSA1.6 ML OP; REFRESH OPTIVE15 ML OP
[2020-06-13 18:39] VITALS: BP 125/78
[2020-06-13] MEDS ORDERED: Augmentin 875mg Tab ORAL ONE (18:45)
--- NOTE | 2020-06-13 18:47 | Emergency Room Report ---
History of Present Illness General Chief Complaint: Skin Rash/Abscess Source: Patient Present Illness HPI 64-year-old male with history of SVT and other comorbidities here for Medicare semi-painful rash left lower ankle that started today. Patient reports that he was sitting at his sister's garden and he something bit him in the ankle. Minimal bleeding noted no pus drainage noted. Has full range of motion, denies pain upon palpation of the affected area denies any tingling numbness. Denies fever and chills, nausea or vomiting. Denies any recent camping or travel. Has not taken medication for symptom relief. No signs of endocarditis noted on lower extremities. Up-to-date with tetanus shot. Sitting comfortably with stable vital signs. Denies headache and dizziness. Allergies: Coded Allergies: No Known Allergies (Unverified , 05/09/20) COVID-19 Screening Contact w/high risk pt: No Experienced COVID-19 symptoms?: No COVID-19 Testing performed ADOBE LAYER HELPER: No Patient History Past Medical History: see triage record Past Surgical History: none Pertinent Family History: none Immunizations: UTD Reviewed Nursing Documentation: PMH: Agreed; PSxH: Agreed Nursing Documentation-PMH Past Medical History: No History, Except For Review of Systems All Other Systems: negative except mentioned in HPI Physical Exam Vital Signs Date Time Temp Pulse Resp B/P (MAP) Pulse Ox O2 Delivery O2 Flow Rate FiO2 06/13/20 18:24 98.8 61 15 129/77 (94) 95 Room Air Sp02 EP Interpretation: reviewed, normal General Appearance: no apparent distress, alert, GCS 15, non-toxic Head: normocephalic, atraumatic Eyes: bilateral eye normal inspection, bilateral eye PERRL ENT: hearing grossly normal, normal pharynx, no angioedema, normal voice Neck: full range of motion, supple/symm/no masses Respiratory: chest non-tender, lungs clear, normal breath sounds, speaking full sentences Cardiovascular #1: regular rate, rhythm, no edema Cardiovascular #2: 2+ dorsalis pedis (R), 2+ dorsalis pedis (L) Gastrointestinal: normal bowel sounds, non tender, soft, non-distended, no guarding, no rebound Genitourinary: no CVA tenderness Musculoskeletal: back normal, no calf tenderness, pelvis stable, non-tender Neurologic: alert, motor strength/tone normal, oriented x3, sensory intact, responsive, speech normal Psychiatric: judgement/insight normal, memory normal, mood/affect normal, no suicidal/homicidal ideation Skin: rash - Insect bite noted left lateral ankle without any pus drainage or active bleeding, no cyst or abscess noted, no halo with central clearing noted Lymphatic: no adenopathy Medical Decision Making PA Attestation All my diagnosis and treatment plans were reviewed ad discussed with my supervising physician Dr. Olsen Diagnostic Impression: Primary Impression: Insect bite ER Course 64-year-old male with history of SVT and other comorbidities here for Medicare semi-painful rash left lower ankle that started today. Patient reports that he was sitting at his sister's garden and he something bit him in the ankle. Minimal bleeding noted no pus drainage noted. Has full range of motion, denies pain upon palpation of the affected area denies any tingling numbness. Denies fever and chills, nausea or vomiting. Denies any recent camping or travel. Has not taken medication for symptom relief. No signs of endocarditis noted on lower extremities. Up-to-date with tetanus shot. Sitting comfortably with stable vital signs. Denies headache and dizziness. Ddx considered but are not limited to : endocarditis rash, infected insect bite , Lyme disease, cellulitis,, superficial infection, abscess Vital signs: are WNL, pt. is afebrile H&PE are most consistent with:insect bite not infected ORDERS: Hydrocortisone cream, Augmentin as patient had a recent SVT and high risk for infection. ED INTERVENTIONS: First dose of Augmentin DISCHARGE: At this time pt. is stable for d/c to home. Will provide printed patient care instructions, and any necessary prescriptions. Care plan and follow up instructions have been discussed with the patient prior to discharge. Patient take medication as directed, follow-up primary care provider, if worsening symptoms return to the emergency room Last Vital Signs Date Time Temp Pulse Resp B/P (MAP) Pulse Ox O2 Delivery O2 Flow Rate FiO2 06/13/20 18:39 98.8 85 16 125/78 97 Room Air Disposition: HOME, SELF-CARE Condition: Stable Scripts Hydrocortisone/Aloe (Hydrocortisone/Aloe 1% Cream*) Y Cr 1 APPLIC TOPIC Q6H PRN for Itching, #30 GM Prov: Marc Schaefer 06/13/20 Amoxicillin/Potassium Clav 875-125* (AUGMENTIN 875-125 TABLET*) 1 Each Tablet 1 TAB ORAL TWICE A DAY for 7 Days, #14 TAB Prov: Marc Schaefer 06/13/20 Patient Instructions: Insect Bite, [id number] Additional Instructions: Take medication as directed, follow primary care provider, worsening symptoms return to the emergency room Marc Schaefer Jun 13, 2020 18:47
[2020-06-13] MEDS ORDERED: HYDROCORTISONE-30 GM TOPIC (18:48)
[2020-06-13] MEDS ORDERED: AUGMENTIN 875-1 EAC1 ORAL (18:48)
[2020-06-13 18:53] VITALS: BP 128/77
== END 2020-06-13 18:53 | disposition home or self-care (01) ==
LOC: EMR 18:40
DX: S90.562A Insect bite (nonvenomous), left ankle, initial encounter (principal); W57.XXXA Bitten or stung by nonvenomous insect and other nonvenomous arthropods, initial encounter; Y92.9 Unspecified place or not applicable
CPT/HCPCS: 99282